=== PATIENT | female | born 1950 | race Caucasian/White ===

== ENCOUNTER 2016-06-10 12:29 | Inpatient (IN) | payer MEDICAID ==
[~2016-06-10] VITALS: Ht 149.9 cm; Wt 74.1 kg
--- NOTE | 2016-06-10 12:54 | NUR ---
PT AMBULATORY WITH FAMILY BACK TO ED LOBBY TO AWAIT BED AVAILABILITY, PT AA/O X4, RESPS EVEN AND UNLABORED, NO S/S OF DISTRESS NOTED. EKG DONE AND SHOWN TO DR. JUAN. INSTRUCTED PT AND FAMILY TO INFORM PHYSICAL THERAPY SUPERVISOR IF ANY CONCERNS.
--- NOTE | 2016-06-10 13:46 | NUR ---
PT CAME TO ED TODAY W/ COMPLAINT OF CHEST PAIN SINCE LAST NIGHT. PT REPORTS LEFT-SIDED PRESSURE-LIKE CHEST PAIN THAT RADIATES TO THE BACK. PT REPORTS PAIN WAS STRONGER LAST NIGHT THAN IT IS RIGHT NOW. PT DENIES ANY SOB, NAUSEA, OR DIZZINESS. PT IS A&O X 4, BREATHING EVEN AND UNLABORED, WITH NO VISUAL SIGNS OF ACUTE OR RESP DISTRESS NOTED. PT'S DAUGHTER AT BEDSIDE.
--- NOTE | 2016-06-10 14:41 | NUR ---
PT STAtes cp 5/10 at this time. ntg 0.4 sl admin as ordered.
--- NOTE | 2016-06-10 14:51 | NUR ---
PT STATES CP STILL 4/10, NTG 0.4 SL ADMIN (2ND DOSE).
[2016-06-10 14:52] LABS: BASOPHIL % 0.8 % (0-2); PLATELET COUNT 267 x10^3mcL (130-400); RED CELL DISTRIBUTION WIDTH 13.4 % (11.5-14.5)
[2016-06-10] MEDS ORDERED: IBUPROFEN400 MG PO (14:52)
--- NOTE | 2016-06-10 15:02 | NUR ---
URINE SAMPLE TO LAB. PT STATES NO MORE CP AT THIS TIME. NSR ON PRODUCTION INSPECTOR. NO SIGNS OF DISTRESS NOTED.
[2016-06-10 15:03] LABS: CALCIUM 8.7 mg/dL (8.5-10.1); CARBON DIOXIDE 30.2 mmol/L (21-32); CHLORIDE SERUM 105 mmol/L (98-107); CREATININE SERUM 0.6 mg/dL (0.6-1.0); GFR1 > 60 mL/min; GLUCOSE SERUM 119 mg/dL (74-106); SODIUM SERUM 143 mmol/L (136-145)
[2016-06-10 15:07] LABS: ALBUMIN 3.8 g/dL (3.4-5.0); ALKALINE PHOSPHATASE 104 U/L (46-116); ALT/SGPT 27 U/L (14-59); AMYLASE 68 U/L (25-115); AST/SGOT 19 U/L (15-37); BILIRUBIN TOTAL 0.6 mg/dL (0.20-1.00); LIPASE 153 IU/L (73-393); TOTAL PROTEIN, SERUM 7.1 g/dL (6.4-8.2)
[2016-06-10 15:20] LABS: CHOLESTEROL 215 mg/dL (<200); HDL CHOLESTEROL 61 mg/dL (40-60)
[2016-06-10 16:26] LABS: UA SPECIFIC GRAVITY 1.025 (1.005-1.035); urine erythrocyte NEGATIVE (NEGATIVE)
[2016-06-10 16:35] LABS: AMPHETAMINE QUAL UR NONE DETECTED (NEG <=1000)
--- NOTE | 2016-06-10 16:48 | NUR ---
REPORT RECEIVED FROM KORI IN ER, WILL AWAIT PT'S ARRIVAL.
--- NOTE | 2016-06-10 16:48 | NUR ---
PT ADMITTED TO [facility], REPORT GIVEN TO ROSALEE.
[2016-06-10 16:56] LABS: microscopic required? YES
--- NOTE | 2016-06-10 16:57 | NUR ---
SITTING IN BED, AWAKE, ALERT, NO CP AT THIS TIME, NO SOB, NO SIGNS OF DISTRESS, NSR ON COLLARETTE SEPARATOR.
--- NOTE | 2016-06-10 17:05 | NUR ---
RECEIVED PT FROM ED VIA [facility]. CAME IN DUE TO CHEST PAIN SINCE LAST NIGHT. AAOX4. DENIES HEADACHE/DIZZINESS. NO SOB NOTED, ON 2LPM/NC. DENIES CHEST PAIN/PRESSURE AT THIS TIME, NSR ON THE MONITOR. DENIES ABDOMINAL DISCOMFORT. IV SITE ON THE LEFT HAND IS PATENT AND INTACT. SIDE RAILS UPX2. CALL LIGHT ON REACH. SON AT BEDSIDE. PRIMARY NURSE GENEVIEVE AT BEDSIDE FOR CONTINUITY OF CARE
[2016-06-10 17:15] VITALS: BP 134/76
[2016-06-10 17:17] VITALS: Ht 149.9 cm; Wt 74.1 kg
[2016-06-10 17:26] LABS: CHOLESTEROL/HDL RATIO 3.8
[2016-06-10 17:34] LABS: FREE T4 1.1 ng/dL (0.76-1.46); FREE THYROXINE INDEX 2.5 ug/dL (1.4-4.5); T4(THYROXINE) 8.4 ug/dL (4.7-13.3)
--- NOTE | 2016-06-10 17:36 | NUR ---
PT DENIES SOB, DENIES CHEST PAIN AT THIS MOMENT, FAMILY AT BEDSIDE, DINNER ARRIVED, CALL LIGHT WITHIN REACH, WILL CONTINUE TO MONITOR.
[2016-06-10 17:47] VITALS: BP 134/76
[2016-06-10 17:50] LABS: T3 TOTAL 1.07 ng/mL
--- NOTE | 2016-06-10 18:38 | NUR ---
PT CURRENTLY DENIES CHEST PAIN, DENIES SOB, FAMILY AT BEDSIDE, CALL LIGHT WITHIN REACH, WILL ENDORSE PT TO NEXT SHIFT.
[2016-06-10 19:55] VITALS: BP 112/65
--- NOTE | 2016-06-10 19:55 | NUR ---
RECEIVED PT FROM AM [facility]. PT QUIETLY RESTING IN BED AT THIS TIME. A/OX4 WITH FAMILY BY BEDSIDE. TELE 7 NSR, VERBALIZED SLIGHT CHEST DISCOMFORT OF 2/10 BUT REFUSING ANY PAIN MEDICATION AT THIS TIME. DENIES ANY SOB. ON 2 LITERS NASAL CANNULA O2 SAT 98%, LUNG SOUNDS CLEAR. BREATHING EVEN AND UNLABORED. CIRCULATION WNL, BOWEL SOUNDS ACTIVE, AMBULATES INDEPENDENTLY, CALL LIGHT WITHIN REACH. IVF INFUSING TO LH AT 50ML/HR NS. WILL CONTINUE TO MONITOR.
[2016-06-10 21:13] VITALS: BP 97/62
[2016-06-11 04:34] LABS: BASOPHIL % 0.6 % (0-2); PLATELET COUNT 245 x10^3mcL (130-400); RED CELL DISTRIBUTION WIDTH 13.5 % (11.5-14.5)
[2016-06-11 05:15] LABS: CALCIUM 8.2 mg/dL (8.5-10.1); CARBON DIOXIDE 25.8 mmol/L (21-32); CHLORIDE SERUM 107 mmol/L (98-107); CREATININE SERUM 0.6 mg/dL (0.6-1.0); GFR1 > 60 mL/min; GLUCOSE SERUM 93 mg/dL (74-106); SODIUM SERUM 143 mmol/L (136-145)
[2016-06-11 05:49] VITALS: BP 91/51
[2016-06-11 06:26] LABS: PHOSPHOROUS 4.3 mg/dL (2.5-4.9)
--- NOTE | 2016-06-11 08:03 | NUR ---
PT RECEIVED DURING CHANGE OF SHIFT, ASLEEP, TELE 7, NSR, PULSES PRESENT BUE AND BLE, NO EDEMA NOTED, LUNGS CTA ON 2L NC, BREATHING EVEN AND UNLABORED, BOWEL SOUNDS ACTIVE, ABLE TO VOID, BRP, AMBULATORY, SKIN WARM DRY INTACT, NO INDICATION OF PAIN, IV TO LT HAND INFUSING NS AT 50ML/HR, CALL LIGHT WITHIN REACH, WILL CONTINUE TO MONITOR.
--- NOTE | 2016-06-11 08:52 | NUR ---
PT DENIES SOB, DENIES PAIN, BREATHING EVEN AND UNLABORED, CALL LIGHT WITHIN REACH, WILL CONTINUE TO MONITOR.
--- NOTE | 2016-06-11 09:05 | NUR ---
DR. HERNANDEZ MAKING ROUNDS, PLAN OF CARE DISCUSSED WITH PT AND FAMILY.
[2016-06-11 09:25] VITALS: BP 96/58
--- NOTE | 2016-06-11 10:44 | NUR ---
PT DENIES SOB, DENIES PAIN, FAMILY AT BEDSIDE, CALL LIGHT WITHIN REACH, WILL CONTINUE TO MONITOR.
--- NOTE | 2016-06-11 11:24 | NUR ---
PT DENIES SOB, DENIES PAIN, FAMILY AT BEDSIDE, CALL LIGHT WITHIN REACH, WILL CONTINUE TO MONITOR.
--- NOTE | 2016-06-11 12:47 | NUR ---
PT DENIES SOB, DENIES PAIN, FAMILY AT BEDSIDE, CALL LIGHT WITHIN REACH, EATING LUNCH, WILL CONTINUE TO MONITOR.
--- NOTE | 2016-06-11 13:25 | NUR ---
PT DENIES SOB, DENIES PAIN, FAMILY AT BEDSIDE, CALL LIGHT WITHIN REACH, WILL CONTINUE TO MONITOR.
--- NOTE | 2016-06-11 13:26 | NUR ---
PT AND VISITOR MENTIONED PT'S MOTHER HAD BREAST CANCER.
[2016-06-11 13:30] VITALS: BP 79/49
--- NOTE | 2016-06-11 14:34 | NUR ---
PT ASLEEP, NO INDICATION OF PAIN, BREATHING EVEN AND UNLABORED, CALL LIGHT WITHIN REACH, WILL CONTINUE TO MONITOR.
--- NOTE | 2016-06-11 16:00 | NUR ---
PT DENIES SOB, DENIES PAIN, DENIES LIGHT HEADEDNESS, FAMILY AT BEDSIDE, CALL LIGHT WITHIN REACH, WILL CONTINUE TO MONITOR.
[2016-06-11 17:10] VITALS: BP 98/56
--- NOTE | 2016-06-11 17:10 | NUR ---
PT DENIES SOB, DENIES PAIN, FAMILY AT BEDSIDE, CALL LIGHT WITHIN REACH, WILL CONTINUE TO MONITOR.
--- NOTE | 2016-06-11 18:09 | NUR ---
PT DENIES SOB, DENIES PAIN, DENIES LIGHT HEADEDNESS, CALL LIGHT WITHIN REACH, WILL ENDORSE PT TO NEXT SHIFT.
--- NOTE | 2016-06-11 19:49 | NUR ---
PATIENT AMBULATED AROUND UNIT WITH FAMILY AND AM HAILEE VALLEJO. NO S/SX OF DISTRESS NOTED. PATIENT DENIES ANY SOB, CHEST PAIN. NO DIZZINESS OR HEADACHE REPORTED BY PATIENT.
[2016-06-11 19:50] VITALS: BP 100/58
[2016-06-11 21:33] VITALS: BP 112/71
--- NOTE | 2016-06-12 00:09 | NUR ---
REMOVED TELE MONITOR 7 PER ORDERS. PT QUIETLY RESTING BUT EASILY AWAKEABLE, CONTINUES TO DENY ANY CHEST PAIN OR SOB.
[2016-06-12 05:59] VITALS: BP 96/58
[2016-06-12] MEDS ORDERED: LIPI10 PO (06:13)
[2016-06-12] MEDS ORDERED: ECO81 PO (06:14)
[2016-06-12 06:45] LABS: BASOPHIL % 0.4 % (0-2); PLATELET COUNT 240 x10^3mcL (130-400); RED CELL DISTRIBUTION WIDTH 13.6 % (11.5-14.5)
[2016-06-12 07:06] LABS: CALCIUM 8.5 mg/dL (8.5-10.1); CARBON DIOXIDE 26.9 mmol/L (21-32); CHLORIDE SERUM 108 mmol/L (98-107); CREATININE SERUM 0.6 mg/dL (0.6-1.0); GFR1 > 60 mL/min; GLUCOSE SERUM 84 mg/dL (74-106); MAGNESIUM 1.9 mg/dL (1.8-2.4); PHOSPHOROUS 4.2 mg/dL (2.5-4.9); POTASSIUM SERUM 4.1 mmol/L (3.5-5.1); SODIUM SERUM 144 mmol/L (136-145)
--- NOTE | 2016-06-12 07:36 | NUR ---
PT RECEIVED DURING CHANGE OF SHIFT, A/OX4, NO TELE, DENIES CHEST PAIN, SCD'S IN USE, LUNGS CTA ON RA, DENIES SOB, BREATHING EVEN AND UNLABORED, BOWEL SOUNDS ACTIVE, DENIES N/V/D, PT ABLE TO VOID, AMBULATORY, SKIN WARM DRY INTACT, DENIES PAIN, IV IN LT HAND INFUSING NS AT 50ML/HR, CALM AND COOPERATIVE, CALL LIGHT WITHIN REACH, WILL CONTINUE TO MONITOR.
--- NOTE | 2016-06-12 08:56 | NUR ---
DR. HERNANDEZ AND RESIDENTS MAKING ROUNDS, PLAN OF CARE DISCUSSED.
--- NOTE | 2016-06-12 09:18 | NUR ---
PT DENIES SOB, DENIES PAIN, FAMILY AT BEDSIDE, CALL LIGHT WITHIN REACH, WILL CONTINUE TO MONITOR.
[2016-06-12 09:26] VITALS: BP 99/60
[2016-06-12 09:34] VITALS: BP 99/60
--- NOTE | 2016-06-12 10:37 | NUR ---
PT AND FAMILY RECEIVED DISCHARGE INSTRUCTIONS, VERBALIZED UNDERSTANDING, ALL QEUSTIONS ANSWERED, IV DC'D CATHETER INTACT, INSTRUCTED TO USE CALL LIGHT WHEN READY TO BE ESCORTED OUT.
--- NOTE | 2016-06-12 10:45 | NUR ---
PT ESCORTED DOWNSTAIRS BY RN.
== END 2016-06-12 10:45 | disposition home or self-care (01) | DRG 243 ==
LOC: ED 12:29 → DU 16:23 → MU 06-11 23:40
PROVIDERS: Emergency Medicine; Family Medicine; ADMIT Family Medicine
DX: K21.9 Gastro-esophageal reflux disease without esophagitis (principal); N17.0 Acute kidney failure with tubular necrosis; R73.03 Prediabetes; E78.5 Hyperlipidemia, unspecified; Z68.33 Body mass index [BMI] 33.0-33.9, adult
CPT/HCPCS: 80307; 83880; 84439; G0480; J7030; Q0092